=== PATIENT | female | born 1960 | race Caucasian/White ===

== ENCOUNTER 2016-09-30 16:10 | Emergency (ER) | payer OTHER ==
[~2016-09-30] VITALS: Ht 157.5 cm; Wt 100.8 kg
[2016-09-30 21:33] VITALS: BP 148/81
== END 2016-09-30 21:33 | disposition home or self-care (01) ==
LOC: ED 16:10
DX: S29.012A Strain of muscle and tendon of back wall of thorax, initial encounter (principal); Z88.8 Allergy status to other drugs, medicaments and biological substances; X58.XXXA Exposure to other specified factors, initial encounter; Y93.89 Activity, other specified; Y99.8 Other external cause status; Y92.89 Other specified places as the place of occurrence of the external cause
CPT/HCPCS: J1170; J2405

== ENCOUNTER 2017-09-02 15:56 | Inpatient (IN) | payer OTHER ==
[~2017-09-02] VITALS: Ht 152.4 cm; Wt 107.2 kg
[2017-09-02 16:03] VITALS: Ht 152.4 cm; Wt 107.2 kg
[2017-09-02 17:20] LABS: BASOPHIL % 0.4 % (0-2); PLATELET COUNT 272 x10^3mcL (130-400); RED CELL DISTRIBUTION WIDTH 13.7 % (11.5-14.5)
[2017-09-02 17:23] LABS: CALCIUM 9.3 mg/dL (8.5-10.1); CARBON DIOXIDE 27.8 mmol/L (21-32); CHLORIDE SERUM 109 mmol/L (98-107); CREATININE SERUM 0.6 mg/dL (0.6-1.0); GFR1 > 60 mL/min; GLUCOSE SERUM 97 mg/dL (74-106); POTASSIUM SERUM 3.6 mmol/L (3.5-5.1); SODIUM SERUM 144 mmol/L (136-145)
[2017-09-02 18:47] LABS: CHOLESTEROL/HDL RATIO 4.1; MAGNESIUM 2.1 mg/dL (1.8-2.4); PHOSPHOROUS 3.1 mg/dL (2.5-4.9)
[2017-09-02 18:49] LABS: T3 TOTAL 0.96 ng/mL
[2017-09-02 19:01] LABS: FREE T4 1.03 ng/dL (0.76-1.46); FREE THYROXINE INDEX 2.7 ug/dL (1.4-4.5); T4(THYROXINE) 7.6 ug/dL (4.7-13.3)
[2017-09-02 19:48] LABS: microscopic required? NO
[2017-09-02 19:56] LABS: urine erythrocyte NEGATIVE (NEGATIVE)
[2017-09-02 20:15] LABS: AMPHETAMINE QUAL UR NONE DETECTED (NEG <=1000)
[2017-09-02 20:48] VITALS: BP 137/83
[2017-09-03 04:47] VITALS: BP 112/59
[2017-09-03 06:49] LABS: BASOPHIL % 0.3 % (0-2); PLATELET COUNT 246 x10^3mcL (130-400); RED CELL DISTRIBUTION WIDTH 14.1 % (11.5-14.5)
[2017-09-03 07:05] LABS: CALCIUM 8.8 mg/dL (8.5-10.1); CARBON DIOXIDE 25.5 mmol/L (21-32); CHLORIDE SERUM 111 mmol/L (98-107); CREATININE SERUM 0.6 mg/dL (0.6-1.0); GFR1 > 60 mL/min; GLUCOSE SERUM 113 mg/dL (74-106); MAGNESIUM 2.1 mg/dL (1.8-2.4); PHOSPHOROUS 3.2 mg/dL (2.5-4.9); POTASSIUM SERUM 3.3 mmol/L (3.5-5.1); SODIUM SERUM 144 mmol/L (136-145)
[2017-09-03 09:30] VITALS: BP 140/78
[2017-09-03] MEDS ORDERED: LISINOPRIL10 MG PO (10:39)
[2017-09-03] MEDS ORDERED: IBUPROFEN800 MG PO (10:39)
[2017-09-03] MEDS ORDERED: FLE10 PO (10:40)
[2017-09-03 10:51] VITALS: BP 140/78
[2017-09-03 12:46] VITALS: BP 140/74
== END 2017-09-03 13:25 | disposition home or self-care (01) | DRG 203 ==
LOC: ED 15:56 → DU 17:43
PROVIDERS: Emergency Medicine; Family Medicine
DX: M94.0 Chondrocostal junction syndrome [Tietze] (principal); E87.8 Other disorders of electrolyte and fluid balance, not elsewhere classified; I10 Essential (primary) hypertension; E78.5 Hyperlipidemia, unspecified; M19.90 Unspecified osteoarthritis, unspecified site; E66.9 Obesity, unspecified; E87.6 Hypokalemia; F17.210 Nicotine dependence, cigarettes, uncomplicated; R73.03 Prediabetes; Z88.8 Allergy status to other drugs, medicaments and biological substances; Z90.49 Acquired absence of other specified parts of digestive tract; Z98.51 Tubal ligation status; Z68.41 Body mass index [BMI] 40.0-44.9, adult
CPT/HCPCS: 83880; 84439; J3010; J7030